=== PATIENT | female | born 2000 | race Caucasian/White ===

== ENCOUNTER 2021-06-12 12:57 | Emergency (ER) | payer BC, SELFPAY ==
--- NOTE | 2021-06-12 13:00 | ED.FEMALEGU ---
HPI - Female Genitourinary General Chief complaint: Urogenital-Female Stated complaint: Vaginal Issue Time Seen by Provider: 06/12/21 12:58 Source: patient Mode of arrival: ambulatory Limitations: no limitations History of Present Illness HPI Narrative: Ms. Deshpande is a 20-year-old female patient presenting to the clinic today with complaints of vaginal drainage and discomfort. She reports that 2 days ago she noted some bloody vaginal discharge. Has been having some vaginal discomfort since and reports that she felt like something fell out of her vagina and it was a clump of white discharge per patient. She denies any fever chills or low back pain. She denies any urinary symptoms. She is currently sexually active. Her last period was on the of this month. Her and her boyfriend have been using condoms and spermicide. She reports that she is in a monogamous relationship. Boyfriend is not complaining of any symptoms. Has had recent change of condom use as the boyfriend did not like the latex condom so he went to latex free condoms. Related Data Allergies Allergy/AdvReac Type Severity Reaction Status Date / Time No Known Allergies Allergy Verified 06/12/21 13:09 Review of Systems Review of Systems: Pertinent positives per HPI. Patient denies any fever, chills, rash, headache, visual changes, dizziness, cough, runny nose, sore throat, shortness of breath, chest pain, palpitations, nausea, vomiting, diarrhea, constipation, abdominal pain, or any urinary issues. PMFSH Comments At the time of my signature, I reviewed and agree with the nursing past medical, surgical, social, and family history. There is no relevant family history pertinent to the patient complaint. Exam Narrative: General: Well-developed, well nourished, in no apparent distress Head: Normocephalic, atraumatic. Cardio: Regular rate and rhythm, s1 and s2 normal, no murmur appreciated. Resp: Clear to auscultation bilaterally, no rhonchi, rales, wheezing or rubs. Abdomen: Soft, pliable, bowel sounds present in all quadrants, non-tender to palpation, no CVAT tenderness. : Pelvic exam performed with (Marielena AVALOS) at bedside. Verbal consent obtained from patient. Normal external female genitalia without lesions or masses, Urinary meatus: Normal appearance, nontender, no scarring, patent without discharge, Vagina: No lesions, masses, green vaginal discharge in the pelvic vault Cervix: pink without mass, lesions, or tenderness. Adnexa: without palpable mass or tenderness.` Course Course Emergency Course: Portions of this record may have been created with voice recognition software. Level of Care: Express Care Visit Vital Signs Vital signs: Vital Signs Temperature 36.7 C 06/12/21 13:06 Pulse Rate 91 06/12/21 13:06 Respiratory Rate 14 06/12/21 13:06 Blood Pressure 136/92 H 06/12/21 13:06 Pulse Oximetry 100 06/12/21 13:06 Temperature 36.7 C 06/12/21 13:06 Pulse Rate 91 06/12/21 13:06 Respiratory Rate 14 06/12/21 13:06 Blood Pressure 136/92 H 06/12/21 13:06 Pulse Oximetry 100 06/12/21 13:06 Vital signs reviewed MDM - Female Genitourinary MDM Narrative Medical decision making narrative: At the time of the assessment patient is resting comfortably on the exam table. Is having vaginal discomfort with vaginal discharge. States that her boyfriend has changed type of condom use, UA positive for a trace of leukocyte, green vaginal discharge noted with pelvic exam, no tenderness to palpation over the suprapubic or adnexa. She denies any fever, urinary symptoms, or low back pain. I suspect either bacterial vaginosis or trichomonas. Metronidazole prescribed and supportive measures discussed with patient. She voiced understanding of discharge instructions Lab Data Labs: UCG Bedside Result Negative Reference Range: Negative Urine Glucose Negative
[2021-06-12 13:06] VITALS: BP 136/92; PULSE 91; RESP 14; TEMP 36.7; O2SAT 100
== END 2021-06-12 13:59 | disposition home or self-care (01) ==
LOC: EXPBETH 13:04
PROVIDERS: Emergency Provider Nurse Practitioner Family
DX: N89.8 Other specified noninflammatory disorders of vagina (principal)
CPT/HCPCS: 81003; 81025; 87070; 87086; 87491; 87591; 87661; 99214; G0463